=== PATIENT | female | born 1980 | race Two or more races ===

== ENCOUNTER → 2017-05-11 | Outpatient (CLI) | payer OTHER | LOC: BMCIMAGING 16:36 | PROVIDERS: ATTEND Family Medicine | DX: R05 Cough (principal) ==

== ENCOUNTER 2018-01-30 21:37 | Emergency (ER) | payer MEDICAID ==
--- NOTE | 2018-01-30 22:21 | EDPHY ---
H & P Time Seen by Provider: 01/30/18 21:40 HPI/ROS: CHIEF COMPLAINT: Leg swelling and redness, worried she has a blood clot HISTORY OF PRESENT ILLNESS: This is a 37-year-old female who is a complicated medical case. She is seronegative rheumatoid arthritis and ultimately was not cleansed until she had the clinical picture of arthritis as well as ache pronounced response to Enbrel. Ultimately she is on Orencia as his left side effects. In the last 18 months she is feeling much more vigorous and less fatigue as she has been diagnosed with sleep apnea and wears her masks She was seen here approximately 12 days ago which time she was noted to have generalized fatigue. Her workup was negative at that time. In the interim she has felt better. However, approximately 7 days ago, she went on a family trip to go visit floor. She was there for approximately 6 days. After 3 days she had noted bilateral lower leg swelling in partner in pronounced erythema of the ankles. It was as if her Skin was tight in itchy and painful at the same time. She due to flee went to bed essentially with bed rest and noted a distinct pronounced improvement. However as there is a little bit of redness lingers, she is worried that she might have a DVT. Whereas there was a negative D-dimer on her visit on January 15, she in the interim has taken a flight both to an back from [place]. Also she is at risk because of her morbid obesity. Fortunately, at the same token she has no respiratory symptoms such as wheezing cough or hemoptysis. Further, the degree of swelling is somewhat similar in both legs and as well as erythema at the ankle. : REVIEW OF SYSTEMS: Constitutional: No fever, no chills. Cardiovascular: No chest pain, no palpitations. Respiratory: No cough, shortness of breath, or wheezing. Gastrointestinal: No nausea vomiting or diarrhea. No abdominal pain. Musculoskeletal: See above Skin: No rashes. Source: Patient - Medical/Surgical History Hx Asthma: No Hx Chronic Respiratory Disease: No Hx Diabetes: No Hx Cardiac Disease: No Hx Renal Disease: No Hx Cirrhosis: No Hx Alcoholism: No Hx HIV/AIDS: No Hx Splenectomy or Spleen Trauma: No Other PMH: hypothyroid, htn, rheumatoid arthritis - seronegative, morbid obesity , , Sleep apnea - Social History Smoking Status: Never smoked Alcohol Use: None Drug Use: None - Physical Exam Exam: General Appearance: Alert, no distress. Afebrile. Normal phonation. No respiratory distress. Morbidly obese, BMI 50% Eyes: No icterus Respiratory: There are no retractions, lungs are clear to auscultation. Skin: There is area of superficial vein prominence on the shins that is not her usual. She is moderately extensive varicosities of the thighs. At the area of the ankle, left more so than right there is a faint erythema and some mild soft tissue swelling. Overall the turgor of the lower extremity versus the thigh is substantially increased. There is no cords however. Musculoskeletal: No joint swelling. Extremities: No edema, nonpitting, bilateral. No cords evident Psychiatric: Normal affect. Patient is oriented X 3. There is no agitation Constitutional: Initial Vital Signs Temperature (C) 36.6 C 01/30/18 21:45 Heart Rate 86 01/30/18 21:45 Respiratory Rate 18 01/30/18 21:45 Blood Pressure 148/84 H 01/30/18 21:45 O2 Sat (%) 99 01/30/18 21:45 O2 Delivery Mode Room Air Allergies/Adverse Reactions: bacitracin [From Neosporin ([id number])] Allergy (Intermediate, Verified 06/18 21:57) Rash bacitracin zinc [From Neosporin ([id number])] Allergy (Verified 01/30/18 21: 57) neomycin sulfate [From Neosporin ([id number])] Allergy (Verified 01/30/18 21: 57) polymyxin B [From Neosporin ([id number])] Allergy (Verified 01/30/18 21:57) Home Medications: Medication Instructions Recorded Lisinopril/Hydrochlorothiazide 1 each PO 07/03/12 [Lisinopril-Hctz 20-25 mg Tab] Orencia 01/15/18 Thyroid,Pork [[place] Thyroid] 01/15/18 Cymbalta 01/30/18 Fish Oil Concentrate Softgel 01/30/18 Furosemide [Lasix 20 MG (*)] 20 mg PO DAILY #5 tab 01/30/18 Proair Hfa 01/30/18 Medical Decision Making ED Course/Re-evaluation: Given her risk factors for DVT PE with morbid obesity and the recent travel a D- dimer was performed. This was ultimately read as negative. She has no symptoms to be concerned for PE. We had a lengthy discussion regarding symptomatic management at home including elevation, aspirin daily, and Lasix therapy. Differential Diagnosis: The differential diagnosis includes but is not limited to: Cellulitis, peripheral edema, vasculitis, superficial varicosities, DVT. - Data Points Point of Care Test Results: D-Dimer D-Dimer Collection Date 01/30/18 D-Dimer Collection Time 22:23 D-Dimer (ng/ml) 147 Departure - Departure Disposition: Home, Routine, Self-Care Clinical Impression: Peripheral edema Condition: Good Instructions: Leg Edema (ED) Additional Instructions: Once home, take the Benadryl which will help both the discomfort as well as itchy feeling. During the daytime, take Zyrtec as will be less sedating and you will still be able still get some relief. Tomorrow, in the morning begin the Lasix 20 mg daily for the next 5 days. If her symptoms and swelling subside before 5 days then you may"the medicine at that time As before that she had been doing for the last few days continue to elevate her legs. However, you're not absolute bedrest. In the meantime as well over the next 7 days take aspirin 81 mg daily for the next 7 days Referrals: NONE *PRIMARY CARE P,. [Primary Care Provider] - As per Instructions Prescriptions: Furosemide [Lasix 20 MG (*)] 20 mg PO DAILY #5 tab
[2018-01-30] MEDS ORDERED: diphenhydrAMINE 25 MG CAP PO ONE (22:53)
[2018-01-30 23:08] VITALS: BP 111/60
== END 2018-01-30 22:53 | disposition home or self-care (01) ==
LOC: CED 21:37
DX: R60.9 Edema, unspecified (principal); M06.9 Rheumatoid arthritis, unspecified; E03.9 Hypothyroidism, unspecified; E66.01 Morbid (severe) obesity due to excess calories; Z68.43 Body mass index [BMI] 50.0-59.9, adult; I10 Essential (primary) hypertension; G47.30 Sleep apnea, unspecified

== ENCOUNTER 2018-06-19 20:15 | Emergency (ER) | payer MEDICAID ==
--- NOTE | 2018-06-19 21:17 | EDPHY ---
H & P Stated Complaint: dysuria Time Seen by Provider: 06/19/18 20:16 HPI/ROS: 37 yo F presents c/o approx 7 days of urinary discomfort and lower abdominal pain. No nausea, no vomiting and no diarrhea. No constipation. Denies vaginal discharge. No fever or chills, pt states she feels dehydrated. Hx of rheumatoid arthritis on Orencia. Hx of cholecystectomy. Review of systems As per HPI General no fever no chills no weakness HEENT no eye pain no eye discharge. No eye redness, no sore throat Respiratory no cough, no shortness of breath Cardiac no chest pain, no peripheral edema GI positive lower abdominal pain, no diarrhea, no constipation, no nausea, no vomiting no flank pain, no hematuria, positive dysuria Musculoskeletal no myalgias, no joint pain Heme no easy bruising, no easy bleeding Endo no polyuria, no polydipsia Skin no rashes, no pruritus Neuro no syncope, no dizziness, no headaches Psych is no suicidal ideation, no homicidal ideation Source: Patient Exam Limitations: No limitations - Personal History LMP (Females 10-55): 22-28 Days Ago Current Tetanus/Diphtheria Vaccine: Yes Current Tetanus Diphtheria and Acellular Pertussis (TDAP): Yes - Medical/Surgical History Hx Asthma: Yes Hx Chronic Respiratory Disease: No Hx Diabetes: No Hx Cardiac Disease: No Hx Renal Disease: No Hx Cirrhosis: No Hx Alcoholism: No Hx HIV/AIDS: No Hx Splenectomy or Spleen Trauma: No Other PMH: hypothyroid, htn, rheumatoid arthritis - seronegative, morbid obesity , , Sleep apnea, asthma polysystic ovarian syndrome - Family History Significant Family History: No pertinent family hx - Social History Smoking Status: Never smoked Alcohol Use: None Drug Use: None - Physical Exam Exam: 37 yo F alert and oriented in nad, non toxic appearance, afebrile at, nc eomi, anicteric neck supple lungs cta bilat heart rrr abd obese, bs present, no upper abd tenderness, rlq tenderness and suprapubic tenderness no guarding and no rebound back no cvat ext no cce Constitutional: Initial Vital Signs Temperature (C) 37.1 C 06/19/18 20:42 Heart Rate 98 06/19/18 20:42 Respiratory Rate 16 06/19/18 20:42 Blood Pressure 124/80 H 06/19/18 20:42 O2 Sat (%) 95 01/19/19 20:42 O2 Delivery Mode Room Air Allergies/Adverse Reactions: bacitracin [From Neosporin ([id number])] Allergy (Intermediate, Verified 06/18 21:57) Rash bacitracin zinc [From Neosporin ([id number]-[id number])] Allergy (Verified 01/30/18 21: 57) diclofenac Allergy (Verified 06/19/18 20:47) neomycin sulfate [From Neosporin ([id number])] Allergy (Verified 01/30/18 21: 57) polymyxin B [From Neosporin ([id number]-hol-[id number])] Allergy (Verified 01/30/18 21:57) Sulfa (Sulfonamide Antibiotics) Allergy (Verified 06/19/18 20:47) Home Medications: Medication Instructions Recorded Lisinopril/Hydrochlorothiazide 1 each PO 07/03/12 [Lisinopril-Hctz 20-25 mg Tab] Orencia 01/15/18 Thyroid,Pork [[place] Thyroid] 01/15/18 Cymbalta 01/30/18 Fish Oil Concentrate Softgel 01/30/18 Proair Hfa 01/30/18 Cephalexin 500 mg PO BID #10 tablet 06/19/18 Phenazopyridine HCl 200 mg PO TID #6 tablet 06/19/18 Vitamin D3 06/19/18 Medical Decision Making ED Course/Re-evaluation: Pt seen and evaluated for lower abdominal pain and dysuria. urine dip trace leuks, 2+blood urinalysis sent to [facility], and urine culture IV established, labs drawn CBC wbc 12.94, no left shift CMP wnl lactic acid 2.1, given lone liter normal saline ct abd andd pelvis neg for acute pathology, specifically appendix normal Impression Lower abdominal pain Possible UTI, culture pending Plan Home Pyridium Cephalexin Culture pending Differential Diagnosis: Differential diagnosis considered but not limited to Gastroenteritis, constipation, diarrhea, appendicitis, urinary tract infection, ruptured ovarian cyst - Data Points Laboratory Results: Laboratory Results 06/19/18 21:37 Microbiology Results: MICROBIOLOGY 06/19/18 20:30 Urine,Clean Catch Urine Culture - Preliminary Medications Given: Discontinued Medications Cephalexin (Keflex 500 Mg Prepack#4) 1 btl TAKEHOME EDNOW ONE PRN Reason: Protocol Stop: 06/19/18 23:01 Last Admin: 06/19/18 23:13 Dose: 1 btl Sodium Chloride (Ns) 1,000 mls @ 0 mls/hr IV ONCE ONE PRN Reason: Wide Open Stop: 06/19/18 21:38 Last Admin: 06/19/18 21:30 Dose: 1,000 mls Phenazopyridine HCl (Pyridium) 200 mg PO EDNOW ONE Stop: 06/19/18 23:02 Last Admin: 06/19/18 23:12 Dose: 200 mg Point of Care Test Results: Chemistry 06/19/18 21:36 POC Sodium 139 mEq/L mEq/L (135-145) POC Potassium 4.0 mEq/L mEq/L (3.3-5.0) POC Chloride 102.0 mEq/L mEq/L (97-110) POC Total CO2 24 mEq/L mEq/L (22-31) POC BUN 10 mg/dL mg/dL (7-23) POC Creatinine 0.3 mg/dL L mg/dL (0.6-1.0) POC Glucose 111 mg/dL H mg/dL (70-100) POC Calcium 9.2 mg/dL mg/dL (8.5-10.4) POC Total Bilirubin 0.5 mg/dL mg/dL (0.1-1.4) POC AST 38 IU/L IU/L (14-46) POC ALT 29 IU/L IU/L (9-52) POC Alk Phosphatase 103 IU/L IU/L (38-126) POC Total Protein 7.3 g/dL g/dL (6.3-8.2) POC Albumin 3.7 g/dL g/dL (3.5-5.0) Blood Gas/Lactic Acid-Venous 06/19/18 21:37 POC Lactic Acid Sancho 2.2 mmol/L H mmol/L (0.7-2.1) Urine Collection Date 06/19/18 Collection Time 20:39 HCG Results Negative Urine Dip Collection Date 06/19/18 Collection Time 20:39 Specific [place] (1.002-1.030) 1.010 PH (5.0-7.5) 6.0 Leukocytes (Negative) Trace Nitrites (Negative) Negative Protein (Negative) Negative Glucose (Negative) Negative Ketones (Negative) Negative Urobilnogen (0.2-1.0 EU) 0.2 Bilirubin (Negative) Negative Blood (Negative) 2+ Departure - Departure Disposition: Home, Routine, Self-Care Clinical Impression: Lower abdominal pain, Dysuria Condition: Good Instructions: Urinary Tract Infection in Women (DC) Referrals: Soledad Gilbert MD [Primary Care Provider] - As per Instructions Prescriptions: Cephalexin 500 mg PO BID #10 tablet Phenazopyridine HCl 200 mg PO TID #6 tablet
[2018-06-19] MEDS ORDERED: NS 1,000 ML IV ONE (21:37)
[2018-06-19] MEDS ORDERED: IOPAMIDOL (ISOVUE 370) 100 ML BTL IV ONE (22:14)
[2018-06-19] MEDS ORDERED: IOPAMIDOL (ISOVUE-370) 150 ML BTL IV ONE (22:15)
[2018-06-19 22:43] LABS: PLATELET COUNT 337 10^3/uL (150-400)
[2018-06-19] MEDS ORDERED: CEPHALEXIN 500MG PREPACK#4 BTL TAKEHOME ONE (23:00)
[2018-06-19] MEDS ORDERED: PHENAZOPYRIDINE HCL 200 MG TAB PO ONE (23:01)
[2018-06-19 23:16] VITALS: BP 121/73
== END 2018-06-19 23:21 | disposition home or self-care (01) ==
LOC: CED 20:15
DX: R30.0 Dysuria (principal); R10.30 Lower abdominal pain, unspecified; I10 Essential (primary) hypertension; E03.9 Hypothyroidism, unspecified; E66.01 Morbid (severe) obesity due to excess calories
CPT/HCPCS: 74177-PO; 80053-ER; 83605-ER; Q9967